=== PATIENT | male | born 1950 | race Caucasian/White ===

== ENCOUNTER → 2016-05-27 | Outpatient (CLI) | payer BC ==
[2016-05-27 12:56] LABS: % FREE PSA 17.1 %; FREE PSA 0.73 ng/ml; PROSTATE SPECIFIC ANTIGEN 4.24 ng/ml (0.000-4.000)
== END | disposition home or self-care (01) ==
LOC: C.LAB 10:02
PROVIDERS: ATTEND Urology
DX: N40.2 Nodular prostate without lower urinary tract symptoms (principal)

== ENCOUNTER → 2017-08-09 | Outpatient (CLI) | payer OTHER | END | disposition home or self-care (01) | LOC: C.LAB 16:09 | PROVIDERS: ATTEND Urology | DX: N40.2 Nodular prostate without lower urinary tract symptoms (principal) ==

== ENCOUNTER → 2017-09-02 | Outpatient (CLI) | payer OTHER ==
[2017-09-02 18:54] LABS: BLOOD UREA NITROGEN 16 mg/dl (7-18); CREATININE 1.16 mg/dl (0.60-1.40)
== END | disposition home or self-care (01) ==
LOC: C.LAB 17:40
PROVIDERS: ATTEND Urology
DX: N40.2 Nodular prostate without lower urinary tract symptoms (principal); R97.20 Elevated prostate specific antigen [PSA]

== ENCOUNTER → 2017-09-21 | Outpatient (CLI) | payer OTHER ==
[~2017-09-21] MED LIST: GADAVIST IV PRN
--- NOTE | 2017-09-21 13:30 | DIAGNOSTIC IMAGING REPORT ---
PROSTATE MRI COMBO CLINICAL HISTORY: 67 years-old Male presenting with N40.2 Prostate [id number]. TECHNIQUE: Multisequence, multiplanar MR imaging of the prostate was performed before and after the administration of intravenous contrast. Additional postprocessing was performed on a separate [employer] workstation by the radiologist for 3-D volumetric segmentation of the prostate and contouring of region(s) of interest (BAL) for targeting. IV contrast: 9.5 mL Gadavist. COMPARISON: None. FINDINGS: Prostate: The prostate measures 6.0 x 5.6 x 6.1 cm (DynaCAD prostate boundary segmentation volume 94.1 mL). Moderate changes of benign prostatic hyperplasia. Precontrast T1 weighted imaging demonstrates no evidence of intrinsic T1 hyperintensity to suggest hemorrhage. Suspicious lesion(s) described below: Lesion (DynaCAD BAL) 1: Location: Left posterolateral peripheral zone at the apex. The lesion does not extend across the midline. Size: 1.1 x 0.4 mm (as measured on ADC for PZ lesion and T2WI for TZ lesion) T2W: 3. Heterogeneous signal intensity or noncircumscribed, rounded, moderate hypointensity. No evidence of extraprostatic extension, seminal vesicle invasion, or neurovascular bundle involvement. DWI: 3. Focal mildly/moderately hypointense on ADC and isointense/mildly hyperintense on high b-value DWI. DCE: Positive. Focal enhancement corresponding to a suspicious finding, earlier or contemporaneous with adjacent normal tissue. PI-RADS: 4. Clinically significant cancer is likely to be present. Seminal vesicles normal. Bladder: Bladder wall thickening likely indicating chronic outlet obstruction. Bowel: Visualized portion of the rectum appear unremarkable with underdistention. Peritoneum: No free fluid in the pelvis. Bilateral fat filled inguinal hernias. Lymph nodes: No lymphadenopathy in the visualized portion of the pelvis. Vasculature: Iliac vessels patent. Abdominal wall: Normal. Osseous structures: Normal bone marrow signal intensity. IMPRESSION: 1. 11 mm lesion in the left posterolateral peripheral zone at the apex. PI-RADS: 4. Clinically significant cancer is likely to be present. This lesion has been segmented for targeted biopsy. 2. Benign prostatic hyperplasia. Electronically signed by: Ha Small M.D. 09/21/2017 1:29 PM Dictated Date/Time: 09/21/2017 1:05 PM
== END | disposition home or self-care (01) ==
LOC: C.MRIBC 09:36
PROVIDERS: ATTEND Urology
DX: N40.0 Benign prostatic hyperplasia without lower urinary tract symptoms (principal); N42.89 Other specified disorders of prostate